=== PATIENT | female | born 1945 | race Two or more races ===

== ENCOUNTER 2022-08-06 14:47 | Emergency (ER) | payer MEDICARE, MEDICAID, SELFPAY ==
[2022-08-06 15:01] VITALS: BP 208/90; PULSE 93; RESP 20; TEMP 36.6; O2SAT 96; BMI 26.6
--- NOTE | 2022-08-06 16:00 | ED.ABDPAIN1 ---
HPI - Abdominal Pain General Chief Complaint: Abdominal Pain Stated Complaint: BLOATING Time Seen by Provider: 08/06/22 16:00 Source: patient Mode of arrival: walk-in Limitations: no limitations History of Present Illness HPI narrative: pt presents to the emergency department complaining of abdominal bloating. She states she ate taco and carnitas and after she ate a she felt like her belly was swollen and she was bloated. She was belching and could not go to [employer] so she came here instead. By the time the patient arrived, she states her belly doesn't hurt anymore . All of her symptoms resolved on their own. She states it felt like when you have acid. She denies any nausea, vomiting, diarrhea, constipation. She denies any Nocturia, or dysuria. She denies any fever, chills, or cough. She denies any chest pain, shortness of breath.The patient is a diabetic she takes 500 mg of metformin twice a day. Related Data Previous Rx's Medication Instructions Recorded cephalexin 500 mg capsule 500 mg PO TID 7 days #21 caps 08/06/22 famotidine 20 mg tablet (Pepcid AC) 20 mg PO DAILY #30 tabs 08/06/22 Allergies Allergy/AdvReac Type Severity Reaction Status Date / Time No Known Drug Allergies Allergy Verified 08/06/22 15:00 Review of Systems ROS Status of ROS 10 or more systems reviewed and unremarkable except as noted in history and below [facility] Social History Smoking status: Never smoker Exam Narrative Exam Narrative: Nurses notes and vital signs reviewed and patient is not hypoxic. General: Nontoxic, Well-appearing and in no apparent distress. Skin: Warm, dry, no pallor noted. No Rash Head: Normocephalic, atraumatic. Neck: Supple, non-tender. Eye: Pupils are equal, round and EOMI. No scleral icterus. Ears, Nose, Mouth, and Throat: TM clear, no posterior oropharynx erythema or nasal mucosal hypertrophy, uvula is mid-line Oral mucosa is moist Cardiovascular: Regular Rate and Rhythm without murmur, gallop or rub. Respiratory: No accessory muscle use or respiratory distress. Lungs are clear to auscultation, no wheezing, rales or rhonchi Chest Wall: no tenderness Back: No midline thoracic or lumbar vertebral tenderness. No CVA tenderness Musculoskeletal: normal ROM, no calf or popliteal tenderness, no lower extremity edema/swelling GI: Abdomen is soft, non-distended. Normal bowel sounds. No masses appreciated. No tenderness to palpation. No rebound, guarding, or rigidity noted. Neurological: A&O x4. No cranial nerve dysfunction observed. No truncal ataxia. Moves all extremities. Sensation intact. Psychiatric: Cooperative and interactive. Normal mood and affect. Constitutional Vital Signs - 24 hr 08/06/22 15:01 Temperature 97.9 F Pulse Rate [Monitor] 93 H Respiratory Rate 20 Blood Pressure [Left Arm] 208/90 H Pulse Oximetry 96 Course Vital Signs Vital signs: Vital Signs Temperature 97.9 F 08/06/22 15:01 Pulse Rate 93 H 08/06/22 15:01 Respiratory Rate 20 08/06/22 15:01 Blood Pressure 208/90 H 08/06/22 15:01 Pulse Oximetry 96 08/06/22 15:01 Temperature 97.9 F 08/06/22 15:01 Pulse Rate 93 H 08/06/22 15:01 Respiratory Rate 20 08/06/22 15:01 Blood Pressure 208/90 H 08/06/22 15:01 Pulse Oximetry 96 08/06/22 15:01 MDM - Abdominal Pain MDM Narrative Medical decision making narrative: Patient was given a gastrointestinal cocktail which helped alleviate the lateral aspect discomfort that she was having. She stated she did not have any abdominal pain she will felt no longer bloated when she arrived to the emergency department. Labs were done due to the patient's comorbidities. She will be started on Keflex. She is advised to watch her sugar glucose monitor her diet better avoid fatty foods, fried foods, and heavy loads of carbohydrates. She was given 1 L of fluids she is nontoxic, stable for outpatient follow-up and treatment. Patient was advised to take 1 g of metformin twice a day but she stated in the past he tried that and she was feeling dizzy so they her doctor wants her at 500 and she will discuss this with him. At this time the patient is without objective evidence of an acute process requiring hospitalization or inpatient management. The patient has remained hemodynamically stable. No additional indication for emergent studies at this time. I answered all questions. Discussed discharge instructions including standard anticipatory guidance and what should prompt a return to the emergency department, including if they get worse are not getting better or develops any new or concerning symptoms. I've given them specific time frame in which to follow-up, and who to follow-up with. The patient demonstrates understanding. Patient is nontoxic and stable for discharge with outpatient follow-up. This note was created with the assistance of a speech recognition program. Although the intention is to generate documents that actually reflects the content of the visit, no guarantees can be provided that every mistake has been identified and corrected by editing. Differential Diagnosis Differential diagnosis: Likely abdominal pain, constipation, pancreatitis and small bowel obstruction Medical Records Attestation: I reviewed the patient's medical records. Lab Data Attestation: I reviewed the patient's lab results. Labs: Lab Results 08/06/22 08/06/22 08/06/22 Range/Units 15:55 16:27 16:45 WBC 9.9 (4.0-11.0) 10^3/uL RBC 4.16 L (4.20-5.40) 10^6/uL Hgb 12.6 (12.0-16.0) g/dL Hct 36.0 (36.0-48.0) % MCV 86.5 (81.0-99.0) fL MCH 30.3 (26.7-34.0) pg MCHC 35.0 (29.9-35.2) g/dL RDW 12.7 (11.0-15.0) % Plt Count 290 (150-450) 10^3/uL MPV 8.8 L (9.5-13.5) fL Neut % (Auto) 86.7 H (43.0-75.0) % Lymph % (Auto) 7.9 L (20.5-60.0) % [place] % (Auto) 4.2 (1.7-12.0) % Eos % (Auto) 0.6 L (0.9-7.0) % Baso % (Auto) 0.3 (0.2-2.0) % Neut # (Auto) 8.6 H (1.4-6.5) 10^3/uL Lymph # (Auto) 0.8 L (1.2-3.8) 10^3/uL [place] # (Auto) 0.4 (0.3-0.8) 10^3/uL Eos # (Auto) 0.1 (0.0-0.7) 10^3/uL Baso # (Auto) 0.0 (0.0-0.1) 10^3/uL Sodium 135 L (136-145) mmol/L Potassium 3.4 L (3.5-5.1) mmol/L Chloride 97 L (98-107) mmol/L Carbon Dioxide 26.7 (21.0-32.0) mmol/L Anion Gap 14.7 BUN 22.0 H (7.0-18.0) mg/dL Creatinine 1.30 H (0.55-1.02) mg/dL Est GFR ( Amer) 48 L (>=60) Est GFR (Non-Af Amer) 40 L (>=60) BUN/Creatinine Ratio 16.9 Glucose 310 H (74-106) mg/dL Calcium 9.2 (8.5-10.1) mg/dL Total Bilirubin 0.9 (0.2-1.0) mg/dL AST 75 H (15-37) U/L ALT 52 (14-59) U/L Total Protein 8.0 (6.4-8.2) g/dL Albumin 3.7 (3.4-5.0) g/dL Globulin 4.3 g/dL Albumin/Globulin Ratio 0.9 Lipase 120.0 (73.0-393.0) U/L Urine Color Lt. yellow (YELLOW) Urine Clarity Cloudy A (CLEAR) Urine pH 6.0 (5.0-9.0) Ur Specific [place] 1.020 (1.005-1.025) Urine Protein Negative (NEG/TRACE) mg/dL Urine Glucose (UA) >=1000 A (NEGATIVE) mg/dL Urine Ketones Negative (NEGATIVE) mg/dL Urine Occult Blood Trace-i (NEGATIVE) Urine Nitrite Positive A (NEGATIVE) Urine Bilirubin Negative (NEGATIVE) Urine Urobilinogen 0.2 (0.2-1.0) EU/dL Ur Leukocyte Esterase Moderate A (NEGATIVE) Urine RBC 0-2 (0-2) #/HPF Urine WBC 75-100 A (NONE SEEN) #/HPF Ur Squamous Epith Cells Moderate A (NONE/RARE) #/LPF Ur Culture Indicated? Yes Discharge Plan Discharge Chief Complaint: Abdominal Pain Clinical Impression: Hyperglycemia, Acute UTI, Acute gastritis Patient Disposition: Home, Self-Care Time of Disposition Decision: 18:28 Condition: Good Mode of Transportation: Private Vehicle Prescriptions / Home Meds: New cephalexin 500 mg capsule 500 mg PO TID 7 Days Qty: 21 0RF famotidine [Pepcid AC] 20 mg tablet 20 mg PO DAILY Qty: 30 0RF Instructions: Gastritis (ED), Urinary Tract Infection in Women (ED), Diabetic Hyperglycemia (ED) Additional Instructions: Fatty foods and fried foods. Drink plenty of fluids. Follow up with her primary care doctor take the antibiotic as prescribed. Return to emergency department for any problems concerns as discussed. Stand Alone Forms: Portal Instructions Referrals: Physician,Non-Staff, MD [Primary Care Provider] - 1 week
[2022-08-06 16:24] LABS: Bilirubin Urine NEGATIVE (NEGATIVE); Blood Urine TRACE-I (NEGATIVE); Clarity Urine CLOUDY (CLEAR); Color Urine LT. YELLOW (YELLOW); Glucose Urine UA >=1000 mg/dL (NEGATIVE); Ketones Urine NEGATIVE (NEGATIVE); Leukocyte Esterase Urine MODERATE (NEGATIVE); Nitrite Urine POSITIVE (NEGATIVE); Protein Urine NEGATIVE (NEG/TRACE); Urobilinogen Urine 0.2 EU/dL (0.2-1.0)
[2022-08-06 16:27] LABS: Urine Microscopic Indicated YES
[2022-08-06 16:30] LABS: RBC Urine 0-2 #/HPF (0-2); WBC Urine 75-100 #/HPF (NONE SEEN)
[2022-08-06 16:31] LABS: Bacteria Urine LARGE #/HPF (NONE SEEN); Cast Seen? NONE SEEN #/LPF (NONE SEEN); Crystals Seen? None Seen #/HPF (None Seen); Mucus Urine SMALL (NONE SEEN); Squamous Epithelial Cell Urine MODERATE #/LPF (NONE/RARE); Urine Culture Indicated YES
--- NOTE | 2022-08-06 16:35 | XR_ITS ---
[address] [address] Patient Name: NAVEEN GERARD MRN: [id number] date: 1945 Sex: F Assigned Patient Location: ER Current Patient Location: ER Accession/Order Number: [id number] Exam Date: 08/06/2022 16:40 Report Date: 08/06/2022 17:14 At the request of: ALCIRA MCGARRY Procedure: XR acute abdomen series EXAM: XR acute abdomen series HISTORY: Abdominal pain COMPARISON: None. TECHNIQUE: AP chest and 3 views of the abdomen FINDINGS: The lung parenchyma is free of consolidation or infiltrate. No pneumothorax or pleural effusion. The cardiac, mediastinal and hilar contours are unremarkable. The bowel gas pattern is nonobstructed. Stool burden is unremarkable. No visualized free intraperitoneal air or intra-abdominal calcification. No acute osseous abnormality. IMPRESSION: No visualized acute abnormality Electronically authenticated by: DRU WHEAT Date: 08/06/2022 17:14
[2022-08-06 17:02] LABS: Basophils Percent Auto 0.3 % (0.2-2.0); Eosinophils Absolute Auto 0.1 10^3/uL (0.0-0.7); Eosinophils Percent Auto 0.6 % (0.9-7.0); Hemoglobin 12.6 g/dL (12.0-16.0); Immature Granulocytes Abs Auto 0.03 10^3/uL (0.00-0.03); Immature Granulocytes Pct Auto 0.3 % (0.0-0.5); Lymphocytes Absolute Auto 0.8 10^3/uL (1.2-3.8); Lymphocytes Percent Auto 7.9 % (20.5-60.0); Mean Corpuscular Hemoglobin 30.3 pg (26.7-34.0); Mean Corpuscular Volume 86.5 fL (81.0-99.0); Mean Platelet Volume 8.8 fL (9.5-13.5); Monocytes Absolute Auto 0.4 10^3/uL (0.3-0.8); Monocytes Percent Auto 4.2 % (1.7-12.0); Neutrophils Absolute Auto 8.6 10^3/uL (1.4-6.5); Neutrophils Percent Auto 86.7 % (43.0-75.0); Platelet Count 290 10^3/uL (150-450); Red Blood Count 4.16 10^6/uL (4.20-5.40); Red Cell Distribution Width 12.7 % (11.0-15.0); White Blood Count 9.9 10^3/uL (4.0-11.0)
[2022-08-06 17:16] LABS: Alanine Aminotransferase 52 U/L (14-59); Albumin Globulin Ratio 0.9; Albumin Level 3.7 g/dL (3.4-5.0); Alkaline Phosphatase 132 U/L (46-116); Anion Gap 14.7; Aspartate Amino Transferase 75 U/L (15-37); BUN Creatinine Ratio 16.9; Bilirubin Total 0.9 mg/dL (0.2-1.0); Calcium 9.2 mg/dL (8.5-10.1); Carbon Dioxide 26.7 mmol/L (21.0-32.0); Chloride 97 mmol/L (98-107); Estimated GFR (African America 48 (>=60); Estimated GFR (Non-African Ame 40 (>=60); Globulin 4.3 g/dL; Glucose 310 mg/dL (74-106); Potassium 3.4 mmol/L (3.5-5.1); Sodium 135 mmol/L (136-145)
[2022-08-06] MEDS: 0.9 % SODIUM CHLORIDE 1,000 ML 999 ML IV (17:37)
[2022-08-06] MEDS: lidocaine HCL 15 ML, MAG HYDROX/ALUMINUM HYD/SIMETH 30 ML, HYOSCYAMINE SULFATE 0.25 MG PO (17:38)
[2022-08-06 18:31] VITALS: BP 152/86
--- NOTE | 2022-08-06 19:01 | PC.NURSE ---
d/c instructions complete, pt verbalized understanding. prescriptions sent to pharmacy and this info given to pt. pt gait steady to exit and told to return for any problems or concerns
== END 2022-08-06 19:03 | disposition home or self-care (01) ==
PROVIDERS: Emergency Provider Emergency Medicine
DX: K29.00 Acute gastritis without bleeding (principal); N39.0 Urinary tract infection, site not specified; E11.65 Type 2 diabetes mellitus with hyperglycemia; Z79.84 Long term (current) use of oral hypoglycemic drugs
CPT/HCPCS: 36415; 74022; 80053; 81003; 81015; 83690; 85025; 87086; 87150; 87186; 96360; 99285